=== PATIENT | male | born 1965 | race Caucasian/White ===

== ENCOUNTER → 2016-06-15 | Outpatient (CLI) | payer OTHER ==
[~2016-06-15] MED LIST: ACET-1256 PO; ATOR-22 PO; CLR10 PO; OMEP40CA PO; TELM1TAB11 PO
[2016-06-16 06:34] LABS: ESTIMATED AVERAGE GLUCOSE 120 mg/dl; HA1C FLAG Normal (Normal)
== END | disposition home or self-care (01) ==
LOC: C.LABPBG 13:03
PROVIDERS: ATTEND Internal Medicine Geriatric Medicine
DX: E78.5 Hyperlipidemia, unspecified (principal)

== ENCOUNTER → 2016-06-20 | Outpatient (CLI) | payer OTHER ==
--- NOTE | 2016-06-20 15:33 | DIAGNOSTIC IMAGING REPORT ---
TWO VIEW CHEST CLINICAL HISTORY: Atypical chest pain. FINDINGS: PA and lateral chest radiographs are compared to study dated 06/13/2015. The heart is top normal for projection. The mediastinal contour is within normal limits. The lungs and pleural spaces are clear. There is no pneumothorax. The bony thorax appears intact. There is mild thoracic scoliosis. IMPRESSION: No acute cardiopulmonary abnormality. Electronically signed by: Skyler Patel M.D. 06/20/2016 3:31 PM Dictated Date/Time: 06/20/2016 3:31 PM
--- NOTE | 2016-06-20 15:38 | DIAGNOSTIC IMAGING REPORT ---
THORACIC SPINE 3 VIEWS CLINICAL HISTORY: Thoracic back pain. EYES: AP, lateral, and swimmer's views of the thoracic spine are obtained. No prior studies are available for comparison at the time of dictation. The skeletal structures appear well mineralized. There is no radiographic evidence of fracture or malalignment. Vertebral body height and alignment are maintained throughout the thoracic spine. Minimal levocurvature is suggested in the upper thoracic spine. The transverse processes and pedicles are grossly intact on the frontal view. Only minimal degenerative disc space narrowing is noted on the lateral projection. The imaged lung parenchyma appears clear. IMPRESSION: Mild degenerative change as above. No acute bony abnormality is seen involving the thoracic spine. Electronically signed by: Skyler Patel M.D. 06/20/2016 3:37 PM Dictated Date/Time: 06/20/2016 3:36 PM
--- NOTE | 2016-06-20 15:47 | DIAGNOSTIC IMAGING REPORT ---
CERVICAL SPINE 2 OR 3 VIEWS CLINICAL HISTORY: Atypical chest pain, Left arm pain COMPARISON STUDY: None. FINDINGS: The cervical spine is visualized from C1 through T1. Alignment and curvature are intact. Minimal disc space narrowing at C5-C6 and C6-C7 with small marginal osteophytes. No fracture or subluxation. The C1-C2 interval and prevertebral soft tissues are intact. IMPRESSION: Minimal degenerative disc disease at C5-C6 and C6-C7. No fracture or subluxation within the cervical spine. Electronically signed by: Ubaldo Meade M.D. 06/20/2016 3:46 PM Dictated Date/Time: 06/20/2016 3:43 PM
== END | disposition home or self-care (01) ==
LOC: C.RADBC 14:56
PROVIDERS: ATTEND Internal Medicine Geriatric Medicine
DX: R07.89 Other chest pain (principal); M79.602 Pain in left arm

== ENCOUNTER → 2017-01-22 | Outpatient (CLI) | payer OTHER ==
[2017-01-22 17:58] LABS: BLOOD UREA NITROGEN 15 mg/dl (7-18); CALCIUM 9.2 mg/dl (8.5-10.1); CARBON DIOXIDE 31 mmol/L (21-32); CHLORIDE 103 mmol/L (98-107); GLUCOSE 95 mg/dl (70-99); POTASSIUM 3.3 mmol/L (3.5-5.1); SODIUM 139 mmol/L (136-145)
[2017-01-22 18:01] LABS: CHOLESTEROL 169 mg/dl (0-200); CHOLESTEROL/HDL RATIO 3.2; HDL CHOLESTEROL 53 mg/dl; LDL CHOLESTEROL CALCULATED 78 mg/dl; TRIGLYCERIDES 189 mg/dl (0-150); VERY LOW DENSITY LIPOPROT CALC 38 mg/dl
[2017-01-23 05:47] LABS: ESTIMATED AVERAGE GLUCOSE 117 mg/dl; HA1C FLAG Normal (Normal)
== END | disposition home or self-care (01) ==
LOC: C.LABPBG 11:24
PROVIDERS: ATTEND Internal Medicine Geriatric Medicine
DX: I10 Essential (primary) hypertension (principal); E78.5 Hyperlipidemia, unspecified; D12.6 Benign neoplasm of colon, unspecified; N26.1 Atrophy of kidney (terminal)

== ENCOUNTER → 2017-05-06 | Outpatient (CLI) | payer OTHER ==
--- NOTE | 2017-05-06 20:40 | DIAGNOSTIC IMAGING REPORT ---
L SHOULDER MIN 2 VIEWS ROUTINE CLINICAL HISTORY: Left arm pain. No recent trauma. COMPARISON: None FINDINGS: Alignment of the left shoulder is anatomic. No fracture or suspicious lesion is present. There is moderate osteoarthritis of the left acromioclavicular joint and mild osteoarthritis of the left glenohumeral joint. IMPRESSION: 1. No acute fracture or dislocation of the left shoulder. 2. Moderate osteoarthritis of the left acromioclavicular joint and mild osteoarthritis of the left glenohumeral joint. Electronically signed by: Dmitriy Mendoza M.D. 05/06/2017 8:39 PM Dictated Date/Time: 05/06/2017 8:38 PM
--- NOTE | 2017-05-06 20:41 | DIAGNOSTIC IMAGING REPORT ---
L ELBOW MIN 3 VIEWS ROUTINE CLINICAL HISTORY: Left arm pain. No recent trauma. COMPARISON: None FINDINGS: Alignment of the left elbow is anatomic. No acute fracture or joint effusion is identified. No osseous lesion is identified. IMPRESSION: Unremarkable left elbow radiographs. Electronically signed by: Dmitriy Mendoza M.D. 05/06/2017 8:40 PM Dictated Date/Time: 05/06/2017 8:39 PM
== END | disposition home or self-care (01) ==
LOC: C.RAD 20:15
PROVIDERS: ATTEND Physician Assistant
DX: M79.603 Pain in arm, unspecified (principal); M79.602 Pain in left arm

== ENCOUNTER → 2017-06-17 | Outpatient (CLI) | payer OTHER ==
[2017-06-17 12:33] LABS: BASO % 0.5 %; BASO ABS # 0.05 K/uL (0-0.2); EOS % 1.4 %; EOS ABS # 0.15 K/uL (0-0.5); HEMATOCRIT 43.6 % (42-52); HEMOGLOBIN 14.9 g/dL (14.0-18.0); IG# 0.02 K/uL (0.00-0.02); LYMPH % 44.2 %; LYMPH ABS # 4.71 K/uL (1.2-3.4); MEAN CELL VOLUME 88.8 fL (80-100); MEAN CORPUSCULAR HEMOGLOBIN 30.3 pg (25-34); MEAN CORPUSCULAR HGB CONC 34.2 g/dl (32-36); MONO % 6.1 %; MONO ABS # 0.65 K/uL (0.11-0.59); NEUT % 47.6 %; NEUT ABS # 5.07 K/uL (1.4-6.5); PLATELET COUNT 292 K/uL (130-400); RED CELL DISTRIBUTION WIDTH CV 13.6 % (11.5-14.5); RED CELL DISTRIBUTION WIDTH SD 44.3 fL (36.4-46.3); WHITE BLOOD COUNT 10.65 K/uL (4.8-10.8)
[2017-06-17 12:51] LABS: ALBUMIN 3.8 gm/dl (3.4-5.0); ALT/SGPT 32 U/L (12-78); BLOOD UREA NITROGEN 14 mg/dl (7-18); CALCIUM 8.8 mg/dl (8.5-10.1); CARBON DIOXIDE 27 mmol/L (21-32); CHOLESTEROL 159 mg/dl (0-200); CREATININE 1.04 mg/dl (0.60-1.40); GLUCOSE 100 mg/dl (70-99); POTASSIUM 3.2 mmol/L (3.5-5.1); SODIUM 138 mmol/L (136-145)
[2017-06-17 12:56] LABS: ALKALINE PHOSPHATASE 67 U/L (45-117); AST/SGOT 17 U/L (15-37); LDL CHOLESTEROL CALCULATED 50 mg/dl; TOTAL PROTEIN 7.4 gm/dl (6.4-8.2)
== END | disposition home or self-care (01) ==
LOC: C.LABPBG 08:17
PROVIDERS: ATTEND Internal Medicine Geriatric Medicine
DX: I10 Essential (primary) hypertension (principal); M54.16 Radiculopathy, lumbar region; Z72.0 Tobacco use; R59.0 Localized enlarged lymph nodes

== ENCOUNTER → 2017-07-02 | Outpatient (CLI) | payer OTHER ==
--- NOTE | 2017-07-02 14:11 | DIAGNOSTIC IMAGING REPORT ---
GUIDANCE NEEDLE PLACEMENT CLINICAL HISTORY: Mildly enlarged left posterior cervical chain lymph node seen on comparison MRI 06/13/2017. COMPARISON STUDY: MRI cervical spine 06/13/2017. PROCEDURE: The risks, benefits, and alternatives to the procedure were discussed with the patient. Written informed consent was obtained. The patient was placed supine in ultrasound, and the 1.6 x 0.7 cm lymph node of the left posterior cervical chain was localized by ultrasound and selected for fine needle aspiration. The left neck was prepped and draped in the usual sterile fashion. The lymph node was aspirated under ultrasound guidance with 4 passes utilizing 25-gauge needles. Specimens were reviewed by the pathologist in real-time and deemed adequate for diagnosis. The patient tolerated the procedure well and left the department in satisfactory condition. IMPRESSION: Completed fine-needle aspiration of a left posterior cervical chain lymph node. The above report was generated using voice recognition software. It may contain grammatical, syntax or spelling errors. Electronically signed by: Lennox Cosby M.D. 07/02/2017 2:09 PM Dictated Date/Time: 07/02/2017 2:07 PM
== END | disposition home or self-care (01) ==
LOC: C.ULTR 12:23
PROVIDERS: ATTEND Internal Medicine Geriatric Medicine
DX: R59.0 Localized enlarged lymph nodes (principal); D47.9 Neoplasm of uncertain behavior of lymphoid, hematopoietic and related tissue, unspecified

== ENCOUNTER → 2017-07-05 | Outpatient (CLI) | payer OTHER ==
[2017-07-05 13:48] LABS: BLOOD UREA NITROGEN 15 mg/dl (7-18); CARBON DIOXIDE 27 mmol/L (21-32); GLUCOSE 97 mg/dl (70-99); POTASSIUM 2.9 mmol/L (3.5-5.1); SODIUM 139 mmol/L (136-145)
== END | disposition home or self-care (01) ==
LOC: C.LABPBG 08:46
PROVIDERS: ATTEND Internal Medicine Geriatric Medicine
DX: I10 Essential (primary) hypertension (principal)

== ENCOUNTER → 2017-07-10 | Outpatient (CLI) | payer OTHER ==
[~2017-07-10] MED LIST changes: +HYDR-5688 PO; +TELM80TA PO; +TRIA37.5 PO
[2017-07-10 12:58] LABS: BLOOD UREA NITROGEN 15 mg/dl (7-18); CARBON DIOXIDE 27 mmol/L (21-32); CREATININE 1.12 mg/dl (0.60-1.40); GLUCOSE 102 mg/dl (70-99); POTASSIUM 3.2 mmol/L (3.5-5.1); SODIUM 139 mmol/L (136-145)
== END | disposition home or self-care (01) ==
LOC: C.LABPBG 08:22
PROVIDERS: ATTEND Internal Medicine Geriatric Medicine
DX: E87.6 Hypokalemia (principal)

== ENCOUNTER → 2017-07-19 | Outpatient (CLI) | payer OTHER ==
[~2017-07-19] MED LIST changes: -ACET-1256 PO; -OMEP40CA PO
[2017-07-19 12:06] LABS: BLOOD UREA NITROGEN 23 mg/dl (7-18); CALCIUM 9.3 mg/dl (8.5-10.1); CARBON DIOXIDE 28 mmol/L (21-32); CREATININE 1.24 mg/dl (0.60-1.40); GLUCOSE 107 mg/dl (70-99); POTASSIUM 2.9 mmol/L (3.5-5.1); SODIUM 136 mmol/L (136-145)
== END | disposition home or self-care (01) ==
LOC: C.LABPBG 07:45
PROVIDERS: ATTEND Internal Medicine Geriatric Medicine
DX: E87.6 Hypokalemia (principal)

== ENCOUNTER 2017-07-22 06:36 | Day surgery (SDC) | payer OTHER ==
[2017-07-17 09:31] VITALS: BMI 32.0
[~2017-07-22] VITALS: Ht 177.8 cm; Wt 102.3 kg
[~2017-07-22 06:36] MED LIST changes: +ACETAMINOPHEN 500 MG TAB PO SCH; +CEFAZOLIN 2000MG IV PUSH 15 ML IV SCH; +CeleBREX 200 MG CAP PO SCH; +DEXAMETHASONE 4 MG TAB PO SCH; +FAMOTIDINE 20 MG TAB PO SCH; -HYDR-5688 PO; +LACTATED RINGER'S 1000ML 1,000 ML IV SCH; +LACTATED RINGER'S 1000ML IV SCH; +METOCLOPRAMIDE HCL 10 MG TAB PO SCH; +TRANEXAMIC ACID INJ 1,000 MG x 2 Bags IV SCH
--- NOTE | 2017-07-22 06:47 | History & Physical Bridge Note ---
H&P Re-Evaluation Bridge Note: I have examined the patient, reviewed the History & Physical and in the interval since the performance of the History & Physical I have noted the following changes of clinical significance: No changes noted
[2017-07-22 06:58] VITALS: BP 119/71; PULSE 56; TEMP 36.7; O2SAT 97; Ht 177.8 cm; Wt 102.3 kg
[2017-07-22] MEDS ORDERED: BUPIVACAINE 0.5 % 5 MG/1 ML MPF 30ML VIAL ONE (08:11)
--- NOTE | 2017-07-22 08:37 | DIAGNOSTIC IMAGING REPORT ---
SOFT TISS HEAD/NECK-THYROID CLINICAL HISTORY: 51 years-old Male with Lt cervical lymph node. Left-sided cervical chain lymph node COMPARISON: Ultrasound guided biopsy 07/02/2017 TECHNIQUE: Multiple real time sonographic images of the left neck were obtained accessing randall scale appearance and color doppler flow. FINDINGS/IMPRESSION: Mildly prominent nonenlarged lymph node of the left neck is seen measuring 1.6 x 0.8 cm. No additional focal abnormality or mass lesion identified on this single sonographic image. The above report was generated using voice recognition software. It may contain grammatical, syntax or spelling errors. Electronically signed by: Lennox Cosby M.D. 07/22/2017 8:35 AM Dictated Date/Time: 07/22/2017 8:34 AM
[2017-07-22] MEDS ORDERED: FENTANYL CITRATE INJ 50 MCG/1 ML 2 ML VIAL ONE ×2 (08:45→09:29)
[2017-07-22] MEDS ORDERED: KETOROLAC TROMETHAMINE 30 MG/ML VIAL ONE (09:31)
[2017-07-22] MEDS ORDERED: LIDOCAINE HCL 2% 2 ML VIAL (20MG/ML) ONE (09:31)
[2017-07-22] MEDS ORDERED: ONDANSETRON INJ 2 MG/ML 2 ML VIAL ONE (09:31)
[2017-07-22] MEDS ORDERED: DEXAMETHASONE SOD INJ 4 MG/ML VIAL ONE (09:31)
[2017-07-22] MEDS ORDERED: PROPOFOL IV EMULSION 10 MG/ML 20 ML VIAL IV ONE (09:31)
--- NOTE | 2017-07-22 09:54 | [facility] Operative Report ---
Operative Report Operative Date Jul 22, 2017. Pre-Operative Diagnosis Enlarged Cervical Lymph Node Post-Operative Diagnosis Same Procedure(s) Performed Left Cervical Lymph Node excision Surgeon Dr. Chai Claudio Supervisor Ditching Surgeon(s) Price Watkins PA-C Estimated Blood Loss 10mL Findings enlarged Lt cervical lymph node Specimens Fresh Specimen: A.) Left Cervical Lymph Node - sent out of room to lab at 0947 by OR Elizabeth Calvert Drains None Anesthesia Type General Complication(s) none Disposition Recovery Room / PACU I attest to the content of the Intraoperative Record and any orders documented therein. Any exceptions are noted below.
[2017-07-22] MEDS ORDERED: HYDR-5688 PO (10:06)
--- NOTE | 2017-07-22 10:08 | Discharge Instructions ---
Discharge Instructions Date of Service Jul 22, 2017. Admission Reason for Admission: Lymphadenopathy Discharge Discharge Diagnosis / Problem: lymph node enlargement Discharge Goals Goal(s): Decrease discomfort, Improve function, Improve disease control Activity Recommendations Activity Limitations: as noted below Lifting Limitations: no more than 25 pounds (for 2 weeks) Exercise/Sports Limitations: until after follow-up appointment May Resume Sexual Activity: when tolerated Shower/Bathe: tomorrow Driving or Machine Use: resume 1 day after discharge . Instructions / Follow-Up Instructions / Follow-Up SPECIAL CARE INSTRUCTIONS: * Cover incisions and change daily for comfort/drainage. * May use ibuprofen for pain as tolerated. * Expect some swelling and bruising. Call your doctor if: * Temperature above 101 degrees * Pain not relieved by pain medicine ordered * There is increased drainage or redness from any incision * You have any unanswered questions or concerns [phone]. FOLLOW UP VISIT: If not already scheduled, please call the office for a follow-up visit. for next week- or Sat- suture removal OFFICE PHONE NUMBER: Dr. Claudio Office Current Hospital Diet Patient's current hospital diet: Discharge Diet Recommended Diet: Regular Diet Procedures Procedures Performed: Left Cervical Lymph Node excision Pending Studies Studies pending at discharge: no Laboratory Results Lipid Panel Test 06/17/17 08:20 Range/Units Triglycerides Level 311 H 0-150 mg/dl Cholesterol Level 159 0-200 mg/dl HDL Cholesterol 47 mg/dl Cholesterol/HDL Ratio 3.4 LDL Cholesterol, Calculated 50 mg/dl Medical Emergencies . Who to Call and When: Medical Emergencies: If at any time you feel your situation is an emergency, please call 911 immediately. . Non-Emergent Contact Non-Emergency issues call your: Primary Care Provider, Surgeon . "Provider Documentation" section prepared by Chai Claudio. . VTE Core Measure Inpt VTE Proph given/why not?: SCD's
[2017-07-22] MEDS ORDERED: ONDANSETRON INJ 2 MG/ML 2 ML VIAL IV PRN ×2 (10:15)
[2017-07-22] MEDS ORDERED: HYDROCODONE/ACETAMIN 5/325MG TAB PO PRN ×2 (10:15)
[2017-07-22] MEDS ORDERED: PROMETHAZINE HCL INJ 6.25 MG in SODIUM CHLORIDE 0.9% 50ML 50 ML IV PRN (10:15)
[2017-07-22] MEDS ORDERED: ATROPINE SULFATE 0.1 MG/ML 5ML SYR IV PRN (10:15)
[2017-07-22] MEDS ORDERED: EpHEDrine SULFATE INJ 50 MG/ML AMP IV PRN (10:15)
[2017-07-22] MEDS ORDERED: FENTANYL CITRATE INJ 50 MCG/1 ML 2 ML VIAL IV PRN (10:15)
--- NOTE | 2017-07-22 10:22 | OPERATIVE REPORT ---
DATE OF OPERATION: 07/22/2017 NAME OF OPERATION: Left cervical lymph node excision. PREOPERATIVE DIAGNOSIS: Lymphadenopathy. POSTOPERATIVE DIAGNOSIS: Same. STAFF SURGEON: Dr. Claudio. ISSUING OPERATOR: Price Watkins PA-C. ANESTHESIA: General LMA. DESCRIPTION OF PROCEDURE: The patient was brought in the operating room and placed on the operating table in supine position. His left neck was prepped and draped in usual fashion, had been marked in ultrasound preoperatively. At this point, the skin and subcutaneous tissue were anesthetized using 0.5% plain Marcaine. Transverse incision was made over the sternocleidomastoid muscle on the left side and posteriorly, carrying dissection down through the platysma reflecting the external jugular vein medially and then attempting to dissect lateral and medial to the sternocleidomastoid muscle, which was very large. I ended up mobilizing the muscle by the dissecting down between the fibers being careful to identify the spinal accessory nerve and also sensory nerves in the area. At this point, dissecting very deeply down into the neck, I was able to identify the internal jugular vein and then dissecting laterally able to identify the lymph node enlargement. There was 1 specific large lymph node which was excised. Deep tissue was ligated using 4-0 silk suture and 2-0 chromic catgut suture. After appropriate hemostasis, the sternocleidomastoid muscle was reapproximated using 2-0 chromic catgut suture then the platysma muscle reapproximated using 4-0 chromic suture. The skin was reapproximated using running 5-0 Prolene suture. As a note, my medical assistant instructor Price Watkins, helped with prepping, draping, exposure and excision of the lymph node as well as closure of the wound. I attest to the content of the Intraoperative Record and any orders documented therein. Any exception s are noted below.
--- NOTE | 2017-07-22 10:39 | Anesthesiology Progress Note ---
Anesthesia Post Op Note Date & Time Jul 22, 2017 at 10:39 Vital Signs Pain Intensity: 0 Vital Signs Past 12 Hours Date Time Temp Pulse Resp B/P (MAP) Pulse Ox O2 Delivery O2 Flow Rate FiO2 07/22/17 10:25 61 16 115/71 99 Room Air 07/22/17 10:15 61 20 124/81 98 Room Air 07/22/17 10:05 36.1 65 20 119/65 97 Room Air 07/22/17 06:58 36.7 56 20 119/71 (87) 97 Room Air Notes Mental Status: alert / awake / arousable, participated in evaluation Pt Amnestic to Procedure: Yes Nausea / Vomiting: adequately controlled Pain: adequately controlled Airway Patency, RR, SpO2: stable & adequate BP & HR: stable & adequate Hydration State: stable & adequate Anesthetic Complications: no major complications apparent
[2017-07-22 10:50] VITALS: BP 123/58; PULSE 57; TEMP 36.8; O2SAT 98
[2017-07-22 11:20] VITALS: BP 127/83; PULSE 62; O2SAT 96
[2017-07-22 11:50] VITALS: BP 121/77; PULSE 55; TEMP 36.5; O2SAT 98
== END 2017-07-22 11:55 | disposition home or self-care (01) ==
LOC: C.ACU 06:36
PROVIDERS: ATTEND Surgery
DX: C85.11 Unspecified B-cell lymphoma, lymph nodes of head, face, and neck (principal); R59.1 Generalized enlarged lymph nodes; M19.90 Unspecified osteoarthritis, unspecified site; E78.00 Pure hypercholesterolemia, unspecified; E78.5 Hyperlipidemia, unspecified; E66.9 Obesity, unspecified; K21.9 Gastro-esophageal reflux disease without esophagitis; I10 Essential (primary) hypertension; Z72.0 Tobacco use; Z85.820 Personal history of malignant melanoma of skin; Z90.89 Acquired absence of other organs; Z83.79 Family history of other diseases of the digestive system; Z80.0 Family history of malignant neoplasm of digestive organs; Z68.35 Body mass index [BMI] 35.0-35.9, adult

== ENCOUNTER → 2017-07-26 | Outpatient (CLI) | payer OTHER ==
[~2017-07-26] MED LIST changes: -ACETAMINOPHEN 500 MG TAB PO SCH; -CEFAZOLIN 2000MG IV PUSH 15 ML IV SCH; -CeleBREX 200 MG CAP PO SCH; -DEXAMETHASONE 4 MG TAB PO SCH; -FAMOTIDINE 20 MG TAB PO SCH; +HYDR-5688 PO; -LACTATED RINGER'S 1000ML 1,000 ML IV SCH; -LACTATED RINGER'S 1000ML IV SCH; -METOCLOPRAMIDE HCL 10 MG TAB PO SCH; -TRANEXAMIC ACID INJ 1,000 MG x 2 Bags IV SCH; -TRIA37.5 PO
[2017-07-26 11:52] LABS: BLOOD UREA NITROGEN 17 mg/dl (7-18); CALCIUM 9.2 mg/dl (8.5-10.1); CARBON DIOXIDE 29 mmol/L (21-32); CREATININE 1.04 mg/dl (0.60-1.40); GLUCOSE 99 mg/dl (70-99); SODIUM 138 mmol/L (136-145)
== END | disposition home or self-care (01) ==
LOC: C.LABPBG 09:33
PROVIDERS: ATTEND Internal Medicine Geriatric Medicine
DX: E87.6 Hypokalemia (principal)

== ENCOUNTER → 2017-08-06 | Outpatient (CLI) | payer OTHER ==
[2017-08-06 13:51] LABS: BLOOD UREA NITROGEN 12 mg/dl (7-18); CALCIUM 8.7 mg/dl (8.5-10.1); CARBON DIOXIDE 26 mmol/L (21-32); CREATININE 0.95 mg/dl (0.60-1.40); GLUCOSE 102 mg/dl (70-99); POTASSIUM 3.5 mmol/L (3.5-5.1); SODIUM 138 mmol/L (136-145)
== END | disposition home or self-care (01) ==
LOC: C.LABPBG 08:25
PROVIDERS: ATTEND Internal Medicine Geriatric Medicine
DX: E87.6 Hypokalemia (principal)

== ENCOUNTER → 2017-09-21 | Outpatient (CLI) | payer OTHER ==
[2017-09-21 10:33] LABS: BLOOD UREA NITROGEN 17 mg/dl (7-18); CALCIUM 8.8 mg/dl (8.5-10.1); CARBON DIOXIDE 27 mmol/L (21-32); CREATININE 0.94 mg/dl (0.60-1.40); GLUCOSE 97 mg/dl (70-99); POTASSIUM 3.9 mmol/L (3.5-5.1); SODIUM 139 mmol/L (136-145)
[2017-09-21 11:39] LABS: HEMOGLOBIN A1C 5.5 % (4.5-5.6)
== END | disposition home or self-care (01) ==
LOC: C.LAB1850 09:33
PROVIDERS: ATTEND Internal Medicine Hematology & Oncology
DX: E78.5 Hyperlipidemia, unspecified (principal); R73.9 Hyperglycemia, unspecified

== ENCOUNTER → 2017-10-01 | Outpatient (CLI) | payer OTHER ==
[2017-10-01 13:42] LABS: ALBUMIN 3.9 gm/dl (3.4-5.0); ALT/SGPT 30 U/L (12-78); AST/SGOT 16 U/L (15-37); BLOOD UREA NITROGEN 12 mg/dl (7-18); CARBON DIOXIDE 27 mmol/L (21-32); CREATININE 1.05 mg/dl (0.60-1.40); GLUCOSE 104 mg/dl (70-99); POTASSIUM 3.5 mmol/L (3.5-5.1); SODIUM 140 mmol/L (136-145)
[2017-10-01 13:45] LABS: ALKALINE PHOSPHATASE 76 U/L (45-117); TOTAL PROTEIN 7.5 gm/dl (6.4-8.2)
[2017-10-01 14:05] LABS: HEMATOCRIT 44.2 % (42-52); HEMOGLOBIN 15.1 g/dL (14.0-18.0); MEAN CELL VOLUME 87.5 fL (80-100); MEAN CORPUSCULAR HEMOGLOBIN 29.9 pg (25-34); MEAN CORPUSCULAR HGB CONC 34.2 g/dl (32-36); MEAN PLATELET VOLUME 10.5 fL (7.4-10.4); PLATELET COUNT 221 K/uL (130-400); RED CELL DISTRIBUTION WIDTH CV 13.7 % (11.5-14.5); RED CELL DISTRIBUTION WIDTH SD 43.7 fL (36.4-46.3); WHITE BLOOD COUNT 11.53 K/uL (4.8-10.8)
== END | disposition home or self-care (01) ==
LOC: C.LABPBG 09:09
PROVIDERS: ATTEND Family Medicine
DX: C83.00 Small cell B-cell lymphoma, unspecified site (principal)

== ENCOUNTER → 2017-10-02 | Outpatient (CLI) | payer OTHER ==
--- NOTE | 2017-10-02 09:31 | DIAGNOSTIC IMAGING REPORT ---
PET/CT CLINICAL HISTORY: Lymphoma. COMPARISON STUDY: Abdominal CT dated 04/16/2016. TECHNIQUE: One hour following the IV administration of 14.73 mCi of F-18 FDG, PET/CT examination was performed from the orbital meatal line through the bony pelvis. Noncontrast CT is performed for the purposes of anatomic correlation and attenuation correction. Note that this does not reflect a diagnostic CT examination. Images were reviewed on a separate [employer] independent workstation. Fused images were obtained. Standard uptake values reported are maximum values within the region of interest expressed in gm/mL. FINDINGS: PET FINDINGS: Head and neck: There is expected physiologic activity within the visualized brain parenchyma at the skull base and the salivary glands. There are no pathologically enlarged or FDG avid cervical lymph nodes. Scattered cervical nodes measure up to 13 mm in length and were not appreciably FDG avid. Low level pharyngeal activity is nonspecific and likely within physiologic limits. Thorax: Evaluation of the thorax demonstrates expected physiologic myocardial activity. There are no pathologically enlarged or FDG avid mediastinal, hilar, or axillary lymph nodes. Abdomen and pelvis: There is expected activity within the liver, spleen, kidneys, renal collecting system, and bladder. Low-level bowel activity is likely within physical limits. The spleen measures 10.7 cm in length. There are no pathologically enlarged or FDG avid lymph nodes identified in the abdomen or pelvis. No inguinal adenopathy is seen. Unenhanced CT images: The visualized brain parenchyma at the skull base is normal in appearance. The bony orbits are intact and orbital contents are normal as visualized. There is trace mucosal thickening the left maxillary antrum. The remaining visualized paranasal sinuses appear clear. Findings suggest previous paranasal sinus surgery. The mastoid air cells are well pneumatized. The salivary and thyroid glands are normal in appearance. The thoracic aorta is normal in caliber. The heart is normal in size and without pericardial effusion. No airspace consolidation or pleural effusion is identified. The unenhanced liver, gallbladder, spleen, pancreas, adrenal glands, and kidneys are grossly normal. The abdominal aorta is normal in course and caliber. There is no bowel obstruction. Normal appendix is identified. No intraperitoneal free air or abdominal ascites is seen. There is a small fat-containing umbilical hernia. The bladder is decompressed and grossly unremarkable. The prostate and seminal vesicles are normal as visualized. No destructive osseous lesion is seen. There are bilateral pars defects at L5. IMPRESSION: 1. No pathologically enlarged or FDG avid lymph nodes are identified. 2. The spleen is normal in size. 3. The lungs are clear. 4. Additional findings as above. Electronically signed by: Skyler Patel M.D. 10/02/2017 9:30 AM Dictated Date/Time: 10/02/2017 9:11 AM
== END | disposition home or self-care (01) ==
LOC: C.PET 06:53
PROVIDERS: ATTEND Internal Medicine Hematology & Oncology
DX: C83.00 Small cell B-cell lymphoma, unspecified site (principal)

== ENCOUNTER 2024-12-04 08:02 | Observation (INO) ==
--- NOTE | 2024-11-05 14:12 | PAT Medication Instructions ---
Medication Instructions Date of Service November 05, 2024 Home Medications Medication Instructions Recorded fexofenadine 180 mg tablet 180 mg PO QAM #90 tabs 02/01/22 atorvastatin 20 mg tablet 20 mg PO QAM #90 tabs 11/11/23 montelukast 10 mg tablet 10 mg PO QAM #90 tabs 03/04/24 (Singulair) omeprazole 40 mg capsule,delayed 40 mg PO QAM #90 caps 06/04/24 release telmisartan 80 mg tablet 80 mg PO QAM #90 tabs 06/18/24 amlodipine 10 mg tablet 10 mg PO QAM #90 tabs 09/01/24 nebivolol 20 mg tablet (Bystolic) 20 mg PO QAM #90 tabs 09/01/24 meloxicam 15 mg tablet 15 mg PO QAM #90 tabs 09/15/24 hydrochlorothiazide 25 mg tablet 25 mg PO QAM #90 tabs 10/23/24 multivitamin (Multiple Vitamins tablet) 1 tab PO QAM fexofenadine 180 mg tablet 180 mg PO QAM atorvastatin 20 mg tablet 20 mg PO QAM valacyclovir 1 gram tablet (Valtrex) 2,000 mg PO UD PRN Cold Sores montelukast 10 mg tablet (Singulair) 10 mg PO QAM omeprazole 40 mg capsule,delayed release 40 mg PO QAM telmisartan 80 mg tablet 80 mg PO QAM amlodipine 10 mg tablet 10 mg PO QAM nebivolol 20 mg tablet (Bystolic) 20 mg PO QAM meloxicam 15 mg tablet 15 mg PO QAM hydrochlorothiazide 25 mg tablet 25 mg PO QAM potassium chloride 10 mEq tablet,extended release 10 meq PO QAM Continue as directed valacyclovir 1 gram tablet (Valtrex) 2,000 mg PO UD PRN Cold Sores (if needed) ASK your surgeon for instructions meloxicam 15 mg tablet 15 mg PO QAM DO NOT take the morning of surgery multivitamin (Multiple Vitamins tablet) 1 tab PO QAM fexofenadine 180 mg tablet 180 mg PO QAM montelukast 10 mg tablet (Singulair) 10 mg PO QAM telmisartan 80 mg tablet 80 mg PO QAM hydrochlorothiazide 25 mg tablet 25 mg PO QAM potassium chloride 10 mEq tablet,extended release 10 meq PO QAM Take morning of surgery With a small sip of water, OTHERWISE NOTHING TO EAT OR DRINK AFTER MIDNIGHT: atorvastatin 20 mg tablet 20 mg PO QAM omeprazole 40 mg capsule,delayed release 40 mg PO QAM amlodipine 10 mg tablet 10 mg PO QAM nebivolol 20 mg tablet (Bystolic) 20 mg PO QAM Other Notes If you have any questions please call us at [phone] or [phone] or [phone] or [phone]
--- NOTE | 2024-11-11 11:11 | Anesthesiology Consultation ---
Date of Service November 11, 2024 Assessment & Plan (1) Encounter for pre-operative examination: - Infectious disease screening: Per assessment on 11/05/24- No known recent infectious disease contacts or current infectious disease symptoms. - Outpatient joint assessment: Pt currently scheduled for inpatient pathway. If surgeon requests review for outpatient joint pathway, patient is an acceptable candidate for outpatient joint program from anesthesia standpoint pending surgeon's office assessment that patient is motivated, has good support and completes [facility] preop requirements. - PCP visit (10/27/24): "Hypertension.. stable, continue current medication, salt restriction, home monitoring.. Controlled with statin therapy. Continue atorvastatin, monitor lipids and LFTs every 6 months.. Prediabetes.. stable. continue to follow low starch diet, continue routine exercise, repeat A1C yearly.. CLL (chronic lymphocytic leukemia).. stable. last CT a/p noting increase in LAD, he has no B symptoms, continues on surveillance.. he will continue surveillance care per Oncology.. B-cell lymphoma.. stable. Not on active treatment. Follows with Oncology. He will continue care per Oncology.. Chronic sinusitis.. stable, continue continue control w/ veronica, and singulair.. s/p L knee TKA 2021 to have R TKA next month.. care per [facility].. Pulse 45.." - Chronic bradycardia: Long standing hx of chronic bradycardia dating back several years per available records. HR 48 on PAT vitals (Marked SB at 40bpm on preop EKG). Recent PCP evaluation 10/27/24 with pulse 45. Patient noted to have post-op bradycardia (mentioned in 2019 colonoscopy post-op progress note). Patient had Left TKA done 09/08/21 at [facility] (SAB at L3-4 + regional) without noted anesthesia issue. Patient endorses good functional status and denies cardiopulmonary limiting complaints per PAT visit 11/11/24. Reviewed with Dr. Morales. He feels that further cardiac testing and/or evaluation not needed prior to surgery from his perspective. At anesthesiologist discretion DOS regarding ultimate anesthesia type. Chart Review Chart Review: Acceptable Risk for Surgery (pending evaluation DOS) and Patient seen in Pre Admission Testing Teaching & Discussion Pre-Anesthesia Teaching/Discussion Notes: Instructed NPO after midnight before surgery,except medications with 15 cc of water. Medication instructions provided according to the PAT guidelines. History Surgery Operation Date: 12/04/24 08:00 Proposed Procedures p Right Total Knee Arthroplasty - Morro Norris, Height/Weight Height: 5 ft 9 in Weight: 97.2 kg Allergies Allergy/AdvReac Type Severity Reaction Status Date / Time pollen extracts Allergy Intermediate Sneezing, Verified 11/11/24 10:06 hayfever mold Allergy Mild Hayfever Verified 11/11/24 10:06 povidone-iodine Allergy Unknown Rash Verified 11/11/24 10:06 [From Betadine] lisinopril AdvReac Mild Cough Verified 11/11/24 10:06 Dust Allergy Mild Sneezing Uncoded 11/11/24 10:06 Medications Home Medications Medication Instructions Recorded Confirmed Last Taken multivitamin (Multiple Vitamins 1 tab PO QAM 10/11/18 11/11/24 02/05/24 tablet) fexofenadine 180 mg tablet 180 mg PO QAM #90 tabs 02/01/22 11/11/24 02/06/24 valacyclovir 1 gram tablet 2,000 mg PO UD PRN Cold Sores 01/28/24 11/11/24 Unknown (Valtrex) montelukast 10 mg tablet 10 mg PO QAM #90 tabs 03/04/24 11/11/24 Unknown (Singulair) omeprazole 40 mg capsule,delayed 40 mg PO QAM #90 caps 06/04/24 11/11/24 Unknown release telmisartan 80 mg tablet 80 mg PO QAM #90 tabs 06/18/24 11/11/24 Unknown amlodipine 10 mg tablet 10 mg PO QAM #90 tabs 09/01/24 11/11/24 Unknown nebivolol 20 mg tablet (Bystolic) 20 mg PO QAM #90 tabs 09/01/24 11/11/24 Unknown meloxicam 15 mg tablet 15 mg PO QAM #90 tabs 09/15/24 11/11/24 Unknown hydrochlorothiazide 25 mg tablet 25 mg PO QAM #90 tabs 10/23/24 11/11/24 Unknown potassium chloride 10 mEq 10 meq PO QAM 11/05/24 11/11/24 Unknown tablet,extended release atorvastatin 20 mg tablet 20 mg PO QAM #90 tabs 11/10/24 11/11/24 Unknown fluorouracil 5 % topical cream 1 applic topical ONCE skin cancer 11/11/24 11/11/24 Unknown Past Medical History Medical History Basal cell carcinoma Hx removed from arms and face Dyslipidemia Essential tremor History of B-cell lymphoma Dx 2018, under surveillance History of COVID-19 Dx 04/2020 (MS), resolved History of hypertension History of prediabetes HGBA1C 10/27/24: 5.8% Hx of allergic rhinitis Hx of chronic lymphocytic leukemia Dx ~2017, Under surveillance Follows with Dr Lau ([facility] Hemat[facility]) Hx of gastroesophageal reflux (GERD) Skin lesion of cheek Follows with [facility] dermatology Left lateral upper cheek lesion- [place], advised to use Efudex cream Tubular adenoma of colon Hx Exercise / Class Metabolic Activity II 4-5 Yardwork/Stairs/Walk up hill (one FS: No CP, no SOB) Past Family History Family History Son Diabetes Father Stomach cancer Hypertension Gastrointestinal bleed Cancer Brother Non-Hodgkin lymphoma Cancer Other No family history of adverse response to anesthesia No family history of allergies No family history of bleeding disorder Denies family history of Ovarian cancer Prostate cancer Heart disease Myocardial infarction Breast cancer Colorectal cancer Stroke Asthma Past Surgical History Surgical History H/O oral surgery (02/2022) excision R tonsil remanant (pathology CLL) History of colonoscopy Colonoscopy 09/12/18: Per anesthesia postop progress note: "...heart rate in PACU varied from the low 40s to 50. He denied exercising or taking beta blockers. He stated that he felt fine. He was discharged with the instructions to follow up with his private md if he felt dizzy or lightheaded." History of endoscopic sinus surgery History of left knee replacement Left TKA (09/08/21): SAB at L3-4 + regional at [facility] History of left knee surgery arthroscopic History of lymph node biopsy x3 History of lymph node excision Left neck History of surgery Tonsillectomy (removal of right tonsil mass): 03/09/22, Glidescope#4.0, ETT 8.0, atraumatic History of tonsillectomy History of wisdom tooth extraction Hx of basal cell carcinoma excision Arms, face Hx of tooth extraction end of 09/2024, all top teeth removed Past Anesthesia History No Family Hx of Anesthesia Complications * Remote hx - Remote hx of combative with anesthesia emergence * Colonoscopy 09/12/18: Per anesthesia postop progress note: "...heart rate in PACU varied from the low 40s to 50. He denied exercising or taking beta blockers. He stated that he felt fine. He was discharged with the instructions to follow up with his private md if he felt dizzy or lightheaded." History of PONV No Hx of PONV and No Hx of Motion Sickness Social History Smoking Status: Never smoker tobacco type: smokeless tobacco Do You Dip or Chew Tobacco: Yes (Chews 3/4 can/day - Advised none DOS) Hx Alcohol Use: No (None for years) Hx Substance Use: No substance use type: does not use Review of Systems Patient denies chest pain, shortness of breath, dyspnea on exertion, fever, chills, cough, wheezing, palpitations. Physical Exam Vital Signs BP 121/73 P 48 TEMP 97.7 SP02 98%RA RESP 16 Physical Full cervical extension range of motion. Full TMJ range of motion. TMD > 3.5 finger breaths Mallampati Score III Dentition: no upper teeth Lungs: clear throughout to auscultation Cardiac: bradycardia, regular rhythm, no murmurs noted Spine: normal Carotid arteries: negative bruit Extremities: no LE edema Lab Results Anesthesia Preop Results Results Anesthesia Widget: WBC 13.45 K/ul (4.8-10.8) H 11/11/24 Hgb 13.1 g/dl (14.0-18.0) L 11/11/24 Hct 38.6 % (42.0-52.0) L 11/11/24 Plt 259 K/uL (130-400) 11/11/24 Na 141 mmol/L (136-145) 10/27/24 K 3.2 mmol/L (3.5-5.1) L 10/27/24 Cl 102 mmol/L (98-107) 10/27/24 CO2 32 mmol/L (21-32) 10/27/24 BUN 16 mg/dl (6-23) 10/27/24 Creat 1.06 mg/dl (0.6-1.4) 10/27/24 Glucose Level 98 mg/dl (70-99(Fasting)) 10/27/24 PT 10.4 Seconds (9.0-12.0) 11/11/24 PTT 28 Seconds (21-31) 11/11/24 INR 1.0 (0.9-1.1) 11/11/24 HA1c 5.8 % (4.5-5.6) H 10/27/24 Urine Color Yellow 10/27/24 Urine Appearance Clear (Clear) 10/27/24 Urine pH 7.0 (4.5-7.5) 10/27/24 Urine Specific Hiram 1.011 (1.000-1.030) 10/27/24 Urine Protein Negative (Negative) 10/27/24 Urine Glucose (UA) Negative (Negative) 10/27/24 Urine Ketones Negative (Negative) 10/27/24 Urine Blood Negative (Negative) 10/27/24 Urine Nitrite Negative (Negative) 10/27/24 Urine Bilirubin Negative (Negative) 10/27/24 Urine Urobilinogen Negative (Negative) 10/27/24 Urine Leukocyte Esterase Negative (Negative) 10/27/24 Blood Type O Positive 11/11/24 Antibody Screen NEGATIVE 11/11/24 Testing Laboratory Results *Known hx of CLL- following with CCP heme/onc* Electrocardiogram Date: 11/11/24 Marked sinus bradycardia at 40bpm. 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 Other Testing Chest CT Date: 04/22/24 FINDINGS: Central airways are patent without endobronchial lesions. Heart size is within normal limits. Normal appearance of the pericardium without evidence of a pericardial effusion. Normal caliber of the thoracic aorta and central pulmonary arteries. The lungs are clear without evidence of focal parenchymal consolidation, pleural effusion, or pneumothorax. No nodules or masses are identified. No aggressive or acute osseous abnormalities. Normal appearance of the body wall. The visualized upper abdominal organs are unremarkable. Stable bilateral axillary adenopathy. IMPRESSION: Stable bilateral axillary adenopathy. No suspicious pulmonary nodules or masses identified.
[~2024-12-04 08:02] MED LIST changes: -ATOR-22 PO; +BUPIVACAINE 0.25% PF 30 ML VIAL ONE; +BUPIVACAINE 0.5 % 5 MG/1 ML PF 10ML VIAL ONE; -CLR10 PO; -HYDR-5688 PO; +ROPIVACAINE 0.5% 5 MG/ML 30 ML VIAL ONE; -TELM1TAB11 PO; -TELM80TA PO
[2024-12-04] MEDS: ACETAMINOPHEN 500 MG TAB PO SCH ×2 (08:24→16:32)
[2024-12-04] MEDS: GABAPENTIN 600 MG DOSE PO SCH (08:24)
[2024-12-04] MEDS: dexAMETHasone**PF** 10 MG/ML VIAL IV SCH (08:25)
[2024-12-04] MEDS: FAMOTIDINE 20 MG TAB PO SCH (08:25)
[2024-12-04] MEDS: LR 60ML/HR IV SCH (08:25)
[2024-12-04] MEDS ORDERED: MIDAZOLAM HCL 1 MG/ML 2ML VIAL ONE (08:32)
[2024-12-04] MEDS ORDERED: LIDOCAINE 2% 2 ML VIAL/AMP(20MG/ML) INFIL ONE (08:35)
[2024-12-04] MEDS: LR 15ML/HR IV SCH (08:50)
--- NOTE | 2024-12-04 09:22 | History & Physical Bridge Note ---
Date of Service December 04, 2024 History & Physical Bridge Note I have examined the patient, reviewed the History & Physical and in the interval since the performance of the History & Physical I have noted the following changes of clinical significance: no changes noted
[2024-12-04] MEDS ORDERED: ONDANSETRON INJ 2 MG/ML 2 ML VIAL IV PRN ×2 (10:06→14:09)
[2024-12-04] MEDS ORDERED: ATROPINE SULFATE 0.1 MG/ML 10ML SYR IV PRN (10:06)
[2024-12-04] MEDS: TRANEXAMIC ACID 1,000 MG **IV Pre-op IV SCH (10:08)
[2024-12-04] MEDS ORDERED: PROPOFOL IV EMULSION 10 MG/ML 100 ML VIAL IV ONE (10:33)
[2024-12-04] MEDS: ORTHO JOINT ANESTHETIC ONE (11:01)
[2024-12-04] MEDS: ROPIV 0.5% 246mg, Ketorolac 30mg, EPINEPHrine 0.5mg in NSS INFIL SCH (11:30)
--- NOTE | 2024-12-04 11:30 | Operative Report ---
PG Post Operative Report Pre & Post Diagnosis Operation Date: 12/04/24 10:00 Pre-Op Diagnosis: Right Knee osteoarthritis Post-Op Diagnosis: Right Knee osteoarthritis I identified the patient and participated in the time-out.: Yes Procedure Operation Date: 12/04/24 10:00 Actual Procedures p Right Total Knee Arthroplasty(Right) - Morro Norris DO Surgeon Morro Norris DO Irrigation Foreman Lennox Guadalupe PA-C Estimated Blood Loss 30 Findings Consistent with Post-Op Diagnosis Specimens Right femoral and tibial bone Description of Procedure Implants used: I used a Gee Persona total knee arthroplasty system with a size 10 PS standard femur, F tibia, 34 oval patella, and a size 12 CPS polyethylene bearing. All components were cemented in place with Biomet cement. Gómez arrived [facility] for the above procedure. He was seen in the preoperative holding area and the operative extremity was identified and signed. He was given a preoperative antibiotic, TXA, a spinal anesthetic and an adductor nerve block. He was taken back to the operating room and laid on the table in supine position. He was given basic sedation. The operative knee was then prepped and draped in sterile fashion. A timeout was done, and the patient and the operative extremity was properly identified. A midline incision was made directly over the patella. Dissection was taken down to the extensor mechanism. A medial parapatellar arthrotomy was used. The medial retinaculum was released and the fat pad was mostly excised. The knee was flexed and the ACL, PCL, and meniscus were removed. A drill was sent down the center of the femoral canal followed by an intramedullary cedrick. Off that cedrick a distal femoral cutting block was placed. 9 mm was resected off the distal femur at 5 of valgus. A posterior referencing AP sizing guide was then placed on the distal femur. The femur measured to be a size 10. 2 drill holes were placed in 3 of external rotation. A 4-in-1 cutting block was then impacted into place. Anterior, posterior, and chamfer cuts were then made. The proximal tibia was then exposed. An external tibial alignment guide was placed. A tibial cut guide was then anchored in place and the proximal tibia was then resected. The posterior aspect of the knee was then opened up and any additional meniscus fragments and osteophytes were removed. The tibia measured to be a size F. The tibial plate was then placed in the appropriate rotation and the tibia was drilled and punched. Trial components were then placed. I used a size 12 CPS polyethylene insert. The knee was brought through a full range of motion and felt to be stable. The peg holes for the femoral component were then drilled. The patella was then everted and 9 mm was resected off the posterior aspect of the patella. The patella measured to be a size 34 oval. 3 peg holes were then drilled. A trial patella was placed. The knee was once again brought through a full range of motion and felt to be stable. Trial components were then removed. The surrounding soft tissues were injected with 100 cc of an orthopedic pain control cocktail. All components were then cemented into place with Biomet cement. The final polyethylene insert was then snapped into place. Once cement was dry the tourniquet was deflated. Hemostasis was obtained. A dilute betadyne lavage was then done for 3 minutes. The joint was then irrigated with normal saline solution. The medial parapatellar arthrotomy was then closed with #1 Vicryl suture. The skin was closed with 2-0 Vicryl, 3-0V lock suture, and luisito. A soft compressive dressing was placed. He was then transferred to a hospital bed and taken to the postanesthesia care unit in stable condition. He tolerated the procedure well. Lennox Guadalupe PA-C, was present for the entire procedure. He was critical for patient positioning, prepping, draping, retraction exposure, wound closure and application of sterile dressing. I attest to the content of the Intraoperative Record and any orders documented therein. Any exceptions are noted below.
--- NOTE | 2024-12-04 12:15 | XRay Report ---
TWO VIEWS RIGHT KNEE CLINICAL HISTORY: Postoperative examination. FINDINGS: AP and crosstable lateral portable views of the right knee are obtained. A right knee arthr oplasty is in near anatomic alignment. There has been undersurface remodeling of the patella. No acut e fracture is seen. Soft tissue edema and subcutaneous gas around the knee are expected postsurgical findings. IMPRESSION: Expected postoperative changes status post right knee arthroplasty. No acute fracture is seen. ACT 112: Negative or not required by law. Electronically signed by: Skyler Patel M.D. 12/04/2024 12:14 PM
--- NOTE | 2024-12-04 13:02 | Anesthesiology Progress Note ---
Date of Service December 04, 2024 Anesthesia Post Procedure Vital Signs Vital Signs: Temp Pulse Pulse Resp BP Pulse Ox O2 Del Method 12/04/24 13:00 52 L 16 107/63 100 Room Air 12/04/24 12:50 45 L 16 102/65 94 Room Air 12/04/24 12:40 57 L 18 115/71 95 Room Air 12/04/24 12:30 56 L 16 107/70 94 Room Air 12/04/24 12:20 61 17 103/68 95 Room Air 12/04/24 12:10 56 L 13 108/74 97 Room Air 12/04/24 12:00 75 16 110/68 95 Room Air 12/04/24 11:55 36.0 C L 77 15 101/64 94 Room Air 12/04/24 08:20 36.6 C 45 L 20 108/73 97 Room Air Transfer of Care Handoff Completed per policy Notes Mental Status: alert / awake / arousable Patient Amnestic to Procedure: Yes Nausea / Vomiting: adequately controlled Pain: adequately controlled Airway Patency, RR, SpO2: stable & adequate BP & HR: stable & adequate Hydration State: stable & adequate Neuraxial Anesthesia: was administered and sensory block is resolving Anesthetic Complications: no major complications apparent and Pt Satisfied with anesthetic care
[2024-12-04] MEDS ORDERED: NALOXONE HCL 0.4 MG/1 ML VIAL/CARP IV PRN (14:09)
[2024-12-04] MEDS ORDERED: MAGNESIUM HYDROXIDE SUSP 30 ML UDC PO PRN (14:09)
[2024-12-04] MEDS ORDERED: HYDROmorphone INJ 0.5 MG/0.5 ML SYR IV PRN (14:09)
[2024-12-04] MEDS ORDERED: METOCLOPRAMIDE HCL INJ 5 MG/ML 2 ML VIAL IV PRN (14:09)
[2024-12-04] MEDS: SODIUM CHLORIDE 0.9% 1,000 ML IV SCH (14:40)
[2024-12-04] MEDS: KETOROLAC TROMETHAMINE 15 MG/ML VIAL IV SCH (16:32)
[2024-12-04] MEDS: ASPIRIN 81 MG ECTAB PO SCH (21:43)
[2024-12-04] MEDS: SENNA 8.6 MG TAB PO SCH (21:43)
[2024-12-04] MEDS: DOCUSATE SODIUM 100 MG CAP PO SCH (21:43)
[2024-12-05 07:11] VITALS: BP 121/72; PULSE 51; RESP 18; TEMP 98.6; O2SAT 96
[2024-12-05] MEDS: LOSARTAN POTASSIUM 50 MG TAB PO SCH (07:36)
[2024-12-05] MEDS: hydroCHLOROthiazide 25 MG TAB PO SCH (07:36)
[2024-12-05] MEDS: MONTELUKAST SODIUM 10 MG TABLET PO SCH (07:37)
[2024-12-05] MEDS: ATORVASTATIN 20 MG TAB PO SCH (07:37)
[2024-12-05] MEDS: MULTIVITAMIN TAB PO SCH (07:37)
--- NOTE | 2024-12-05 07:38 | Orthopedic Progress Note ---
Date of Service December 05, 2024 Assessment & Plan (1) Status post right knee replacement: Overall he is doing fairly well. He is not having too much pain in the right knee. He has been up and ambulating to the bathroom. He will be seen by physical therapy today for ambulation and range of motion exercises. The nursing staff can remove the Buddy wrap and cotton dressing today. Leave the Silverlon in place. They may replace the Silverlon if it saturated. He is on aspirin for DVT prophylaxis. He can be discharged home later today. He will follow-up with orthopedics in 2 weeks. Irving Magaña was seen and examined at bedside this morning. Overall he is doing very well. He is not having much pain in the right knee. Has been up and ambulating to the bathroom. He has no complaints.. Review of Systems All systems reviewed & are unremarkable except as noted in HPI & below. Physical Exam On physical exam of the right knee, the dressing is clean and dry. His leg is out full extension. He has active dorsiflexion plantarflexion of his right ankle.. Results & Data Results & Data Laboratory Results . Diagnostic Findings Postoperative x-rays of the right knee show the prosthesis to be in anatomic alignment without any evidence of fracture complication, or loosening.. PG Care Time/CCT Total # of Minutes Spent Total Time Spent with Patient: Total time spent is greater than 50% in coordination of care (as documented) at patient's floor/unit and/or counseling patient: Coding Level of Care Code 67647 Post Operative Follow-Up Diagnoses Status post right knee replacement Z96.651
== END 2024-12-05 10:22 | disposition home or self-care (01) ==
LOC: ASU 08:02 → 3E 08:02